=== PATIENT | female | born 1990 | race Hispanic/Latino ===

== ENCOUNTER 2023-01-07 18:41 | Emergency (ER) | payer SELFPAY ==
[2023-01-07] MEDS ORDERED: Ketorolac Tromethamine 30 MG/ML VIAL ONE (20:11)
== END 2023-01-07 20:35 | disposition home or self-care (01) ==
LOC: ERS 18:41
DX: K08.89 Other specified disorders of teeth and supporting structures (principal)
CPT/HCPCS: 96372; 99282; J1885